=== PATIENT | female | born 1970 | race Hispanic/Latino ===

== ENCOUNTER 2020-08-17 12:05 | Outpatient (CLI) | payer OTHER ==
--- NOTE | 2020-08-17 14:59 | RAD ---
LEFT SHOULDER 3 VIEWS: Date: 08/17/2020 HISTORY: Shoulder pain. FINDINGS: No fracture or dislocation. AC joint normally aligned. There is mild spurring from the AC joint. IMPRESSION: No acute process. Mild degenerative spurring at the AC joint. POS: AGW
--- NOTE | 2020-08-17 15:00 | RAD ---
RIGHT SHOULDER 3 VIEWS: Date: 08/17/2020 HISTORY: Shoulder pain. FINDINGS: No evidence of fracture or dislocation. AC joint normally alignment with minimal spurring at the AC j oint. IMPRESSION: No acute process. POS: MY
== END 2020-08-17 12:06 | disposition home or self-care (01) ==
LOC: MADRAD 12:05
PROVIDERS: ATTEND Family Medicine
DX: M25.511 Pain in right shoulder (principal); M25.512 Pain in left shoulder; M19.012 Primary osteoarthritis, left shoulder